=== PATIENT | female | born 1980 | race Caucasian/White ===

== ENCOUNTER 2017-06-17 18:09 | Emergency (ER) | payer SELFPAY ==
[~2017-06-17] VITALS: Ht 170.2 cm; Wt 81.8 kg
[~2017-06-17 18:09] MED LIST: CLEOCIN HC150 MG/CAP PO; NORCO 325 MG-51 TAB PO; NORCO 325 MG-7.1 TAB PO
[2017-06-17 18:12] VITALS: BP 145/89; PULSE 98; TEMP 99.4
[2017-06-17 18:54] LABS: BASO # 0.1 (0.0-0.2); BASO % 0.9 % (0.0-2.0); EOS # 0.6 (0.0-0.7); EOS % 7.8 % (0-4.0); GRAN # 4.1 (1.4-6.5); GRAN % 51.3 % (42.2-75.2); HEMATOCRIT 38.3 % (37.0-47.0); HEMOGLOBIN 13.3 g/dl (12.5-16.0); LYMPH # 2.7 (1.2-3.4); LYMPH % 33.8 % (20.0-51.0); MEAN CELL VOLUME 89 fl (80.0-100.0); MEAN CORPUSCULAR HEMOGLOBIN 31 pg (27.0-31.0); MEAN CORPUSCULAR HGB CONC 35 g/dl (33.0-37.0); MEAN PLATELET VOLUME 8.7 fl (7.4-10.4); MONO # 0.5 (0.1-0.6); MONO % 6.1 % (1.7-9.3); PLATELET COUNT 280 K/mm3 (130-400); RED BLOOD COUNT 4.29 M/mm3 (4.10-5.30); REDCELL DISTRIBUTION WIDTH-CV 12.4 % (11.5-14.5)
[2017-06-17 19:01] LABS: ADJUSTED CALCIUM 9.2 mg/dL (8.4-10.2); ALBUMIN 4.3 gm/dL (3.5-5.0); BILIRUBIN,TOTAL 0.9 mg/dL (0.0-1.0); C-REACTIVE PROTEIN 4.4 mg/dL (0.0-0.9); CALCIUM 9.4 mg/dL (8.4-10.2); CREATININE, serum 0.73 mg/dL (0.52-1.25); POTASSIUM 3.7 mmol/L (3.4-5.0); TOTAL PROTEIN 7.7 gm/dL (6.4-8.2)
[2017-06-17] MEDS ORDERED: PROTONIX 40MG T40 MG PO (19:43)
[2017-06-17] MEDS ORDERED: NORCO 325 MG-51 TAB PO (19:43)
== END 2017-06-17 20:00 | disposition home or self-care (01) ==
LOC: COL.ER 18:09
PROVIDERS: Emergency Medicine
DX: K21.9 Gastro-esophageal reflux disease without esophagitis (principal); F17.210 Nicotine dependence, cigarettes, uncomplicated